=== PATIENT | male | born 1965 | race African-American/Black ===

== ENCOUNTER 2017-09-01 20:20 | Emergency (ER) | payer SELFPAY ==
[2017-09-01] MEDS ORDERED: Ketorolac Tromethamine 30 MG/ML VIAL ONE (20:32)
[2017-09-01 21:30] LABS: #Basophils 0.3 thou/uL (0.0-0.2); #Lymphocytes 1.2 thou/uL (1.20-3.40); #Monocytes 0.7 thou/uL (0.11-0.59); #Neutrophils 12.3 thou/uL (1.40-6.50); %Basophils 1.8 % (0.0-1.0); %Eosinophils 0.1 % (0.0-10.0); %Lymphocytes 8.4 % (21.0-51.0); %Monocytes 4.5 % (0.0-10.0); %Neutrophils 85.2 % (42.0-75.0); Mean Corpuscular HGB CONC 32.7 g/dL (32.0-36.0); Mean Corpuscular Hemoglobin 29.5 pg (27.0-31.0); Mean Corpuscular Volume 90.2 fl (80.0-94.0); Mean Platelet Volume 7.3 fL (7.4-10.4); Platelet Count 307 thou/uL (130-400); RBC Distribution Width 12.1 % (11.5-14.5); Red Blood Cell (RBC) Count 5.75 mill/uL (4.70-6.10); White Blood Cell (WBC) Count 14.5 thou/uL (4.8-10.8)
[2017-09-01 21:47] LABS: ALT (SGPT) 44 U/L (8-55); AST (SGOT) 26 U/L (5-34); Albumin 5.5 g/dL (3.5-5.0); Alkaline Phosphatase 79 U/L (40-150); Anion Gap 26 mmol/L (10-20); BUN (Urea Nitrogen) 29 mg/dL (8.4-25.7); Bilirubin, Total 0.7 mg/dL (0.2-1.2); CK (CPK) 417 U/L (30-200); Calc. Creatinine Clearance 0 mL/min (70-130); Calcium 10.4 mg/dL (7.8-10.44); Carbon Dioxide 19 mmol/L (22-29); Chloride 98 mmol/L (98-107); Estimated GFR-MDRD 35; Globulin 3.9 g/dL (2.4-3.5); Glucose 94 mg/dL (70-105); Potassium 4.9 mmol/L (3.5-5.1); Protein, Total 9.4 g/dL (6.0-8.3); Sodium 138 mmol/L (136-145)
[2017-09-01 21:49] LABS: CKMB 4.9 ng/mL (0-6.6); Troponin I 0.011 ng/mL (< 0.028)
== END 2017-09-01 23:05 | disposition short-term general hospital (02) ==
LOC: NAV ERS 20:20
DX: M62.82 Rhabdomyolysis (principal); N28.9 Disorder of kidney and ureter, unspecified; J45.909 Unspecified asthma, uncomplicated; F17.210 Nicotine dependence, cigarettes, uncomplicated
CPT/HCPCS: 80053; 82550; 82553; 84484; 85025; 96361; 96374; J1885

== ENCOUNTER 2018-10-24 19:51 | Emergency (ER) | payer SELFPAY ==
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
== END 2018-10-24 21:00 | disposition home or self-care (01) ==
LOC: NAV ERS 19:51
DX: M25.562 Pain in left knee (principal); M89.8X5 Other specified disorders of bone, thigh; F17.210 Nicotine dependence, cigarettes, uncomplicated; J45.909 Unspecified asthma, uncomplicated

== ENCOUNTER 2021-05-05 17:01 | Emergency (ER) | payer SELFPAY ==
[~2021-05-05 17:01] MED LIST: Iopamidol 370 76% 100 ML VIAL ONE
[2021-05-05] MEDS ORDERED: Sodium Chloride 0.9% 1,000 ML ONE ×2 (17:25→21:38)
[2021-05-05] MEDS ORDERED: Ondansetron PF 4 MG/2 ML Vial ONE ×2 (17:25→22:48)
[2021-05-05 17:40] LABS: Hemoglobin 16.4 g/dL (14.0-18.0); Mean Corpuscular HGB CONC 32.5 g/dL (32.0-36.0); Mean Corpuscular Hemoglobin 30.3 pg (27.0-31.0); Mean Corpuscular Volume 93.4 fL (78.0-98.0); Mean Platelet Volume 7.1 fL (7.4-10.4); Platelet Count 415 thou/uL (130-400)
[2021-05-05 17:51] LABS: ALT (SGPT) 38 U/L (8-55); AST (SGOT) 16 U/L (5-34); Albumin 4.3 g/dL (3.5-5.0); Alkaline Phosphatase 87 U/L (40-110); Anion Gap 16 mmol/L (10-20); BUN (Urea Nitrogen) 19 mg/dL (8.4-25.7); Bilirubin, Total 0.8 mg/dL (0.2-1.2); Calc. Creatinine Clearance 0 mL/min (70-130); Calcium 9.6 mg/dL (7.8-10.44); Carbon Dioxide 28 mmol/L (22-29); Chloride 96 mmol/L (98-107); Globulin 3.9 g/dL (2.4-3.5); Glucose 121 mg/dL (70-105); Lipase 7 U/L (8-78); Potassium 4.6 mmol/L (3.5-5.1); Protein, Total 8.2 g/dL (6.0-8.3); Sodium 135 mmol/L (136-145)
[2021-05-05 17:53] LABS: MDiff Complete? YES; Manual Diff?? YES; Neutrophil 69 % (42-75); Red Blood Cell (RBC) Count 5.39 mill/uL (4.70-6.10); White Blood Cell (WBC) Count 9.1 thou/uL (4.8-10.8)
[2021-05-05 17:54] LABS: Anisocytosis SLIGHT = 6-15 cells (100X) (0-5/hpf); Eosinophils 1 % (0-10); Lymphocytes 27 % (21-51); Monocytes 3 % (0-10); Platelet Morphology Comment Appears Adequate
[2021-05-05] MEDS ORDERED: Lorazepam 2 MG/ML VIAL ONE ×2 (18:42→23:15)
[2021-05-05 22:59] LABS: Bilirubin Negative (Negative); Blood, Urine Trace (Negative); Clarity Clear (Clear); Glucose, Urine (Dipstick) Negative (Negative); Ketone, Urine Negative (Negative); Leukocyte Negative (Negative); Nitrite Negative (Negative); Protein, Urine (Dipstick) Negative (Neg-Trace); Specific Gravity, Urine 1.015 (1.005-1.030)
[2021-05-05 23:07] LABS: Bacteria/HPF None Seen HPF (None Seen); RBC/HPF 0-3 HPF (0-3); Squamous Epithelial None Seen HPF (0-3); WBC/HPF None Seen HPF (0-3)
[2021-05-05 23:08] LABS: Amphetamine Detected (NotDetected); Benzodiazepine Screen Detected (NotDetected); Cocaine Metabolite Screen Detected (NotDetected); Methadone Not Detected (NotDetected); Methamphetamine Detected (NotDetected); Opiate Screen Not Detected (NotDetected); Phencyclidine (PCP) Not Detected (NotDetected); THC/Cannabinoid Screen Not Detected (NotDetected); Tricyclic Screen Not Detected (NotDetected)
[2021-05-05 23:09] LABS: Barbiturates Screen Not Detected (NotDetected); Medtox Control Line Valid? VALID (VALID); Oxycodone Screen Not Detected (NotDetected)
[2021-05-05] MEDS ORDERED: Pantoprazole 40 MG VIAL ONE (23:27)
[2021-05-05] MEDS ORDERED: Sterile Water 10 ML ONE (23:29)
[2021-05-05] MEDS ORDERED: Multivit, Adult Inj 10 ML VIAL ONE (23:51)
[2021-05-05] MEDS ORDERED: Dextrose 5 %-0.45 % NaCl 1,000 ML ONE (23:51)
[2021-05-05] MEDS ORDERED: Thiamine HCl 200 MG/2 ML VIAL ONE (23:56)
[2021-05-06 00:17] LABS: ALT (SGPT) 35 U/L (8-55); AST (SGOT) 16 U/L (5-34); Albumin 3.9 g/dL (3.5-5.0); Alkaline Phosphatase 81 U/L (40-110); Anion Gap 14 mmol/L (10-20); BUN (Urea Nitrogen) 17 mg/dL (8.4-25.7); Bilirubin, Total 0.8 mg/dL (0.2-1.2); CK (CPK) 60 U/L (30-200); Calc. Creatinine Clearance 0 mL/min (70-130); Calcium 8.7 mg/dL (7.8-10.44); Carbon Dioxide 26 mmol/L (22-29); Chloride 101 mmol/L (98-107); Globulin 3.6 g/dL (2.4-3.5); Glucose 130 mg/dL (70-105); Magnesium 2.3 mg/dL (1.6-2.6); Potassium 4.5 mmol/L (3.5-5.1); Protein, Total 7.5 g/dL (6.0-8.3); Sodium 136 mmol/L (136-145)
[2021-05-06] MEDS ORDERED: cloNIDine 0.1 MG TAB ONE (00:50)
[2021-05-06] MEDS ORDERED: Lorazepam 2 MG/ML VIAL ONE (05:06)
[2021-05-06] MEDS ORDERED: Ondansetron PF 4 MG/2 ML Vial ONE (05:06)
[2021-05-06 15:23] LABS: SARS-CoV-2 NAA Rapid Test Not Detected (NotDetected)
== END 2021-05-05 18:25 | disposition home or self-care (01) ==
LOC: NAV ERS 17:01
DX: R56.9 Unspecified convulsions (principal); J45.909 Unspecified asthma, uncomplicated; F17.210 Nicotine dependence, cigarettes, uncomplicated; Z20.822 Contact with and (suspected) exposure to COVID-19
CPT/HCPCS: 70450; 71045; 74177; 80053; 80306; 81003; 81015; 82550; 83605; 83690; 83735; 84484; 85025; 93005; 94760; 96365; 96366; 96368; 96374; 96375; 96376; C9113; J2060; J2405; J3411; J7042; J7050; Q9967; U0002

== ENCOUNTER 2021-05-14 17:05 | Emergency (ER) | payer SELFPAY ==
[2021-05-14] MEDS ORDERED: Ondansetron ODT 4 MG TAB ONE (17:34)
[2021-05-14] MEDS ORDERED: Mag-Al Plus 1200 MG/1200 MG/120 MG/30 ML UDCUP ONE (17:34)
== END 2021-05-14 18:15 | disposition home or self-care (01) ==
LOC: EDBD → NAV ERS 17:05
DX: K21.9 Gastro-esophageal reflux disease without esophagitis (principal); R11.2 Nausea with vomiting, unspecified; J45.909 Unspecified asthma, uncomplicated; F17.210 Nicotine dependence, cigarettes, uncomplicated
CPT/HCPCS: 99283; Q0162